=== PATIENT | male | born 1970 | race Caucasian/White ===

== ENCOUNTER 2020-06-30 19:58 | Emergency (ER) | payer OTHER ==
[~2020-06-30 19:58] MED LIST: Iopamidol-370 76% 500 ML 1 ML ONE
[2020-06-30 21:17] LABS: #Basophils 0.1 thou/uL (0.0-0.2); #Eosinphils 0.2 thou/uL (0.0-0.7); #Lymphocytes 1.5 thou/uL (1.20-3.40); #Monocytes 1.1 thou/uL (0.11-0.59); #Neutrophils 9.2 thou/uL (1.40-6.50); %Basophils 0.5 % (0.0-1.0); %Eosinophils 1.3 % (0.0-10.0); %Lymphocytes 12.1 % (21.0-51.0); %Monocytes 9.3 % (0.0-10.0); %Neutrophils 76.8 % (42.0-75.0); Hemoglobin 16.1 g/dL (14.0-18.0); Mean Corpuscular HGB CONC 35.1 g/dL (32.0-36.0); Mean Corpuscular Hemoglobin 32.7 pg (27.0-31.0); Mean Platelet Volume 7.4 fL (7.4-10.4); Platelet Count 247 thou/uL (130-400); RBC Distribution Width 11.8 % (11.5-14.5); Red Blood Cell (RBC) Count 4.94 mill/uL (4.70-6.10)
[2020-06-30 21:38] LABS: ALT (SGPT) 35 U/L (8-55); AST (SGOT) 24 U/L (5-34); Albumin 4.1 g/dL (3.5-5.0); Alkaline Phosphatase 70 U/L (40-110); Anion Gap 16 mmol/L (10-20); BUN (Urea Nitrogen) 18 mg/dL (8.9-20.6); Bilirubin, Total 0.5 mg/dL (0.2-1.2); Calc. Creatinine Clearance 0 mL/min (70-130); Calcium 9.4 mg/dL (7.8-10.44); Carbon Dioxide 22 mmol/L (22-29); Chloride 104 mmol/L (98-107); Estimated GFR-MDRD Greater than 90; Globulin 2.7 g/dL (2.4-3.5); Glucose 93 mg/dL (70-105); Potassium 4.4 mmol/L (3.5-5.1); Protein, Total 6.8 g/dL (6.0-8.3); Sodium 138 mmol/L (136-145)
--- NOTE | 2020-06-30 22:23 | CT ---
EXAM: CT Pelvis W Con PROVIDED CLINICAL HISTORY: Redness and swelling left buttock the level of mid thigh. Complains of left buttock abscess. COMPARISON: None FINDINGS: There is an irregular fluid collection seen within the left gluteal region and the region of the left gluteus payal muscle with enhancing rim. This collection is difficult to accurately measure given the course of the collection which courses from the level of the inferior aspect left sacroilia c joint laterally and inferiorly to the proximal aspect of the left lower extremity. The collection measures approximately 10.1 cm transverse x3.4 cm cranial caudal x4.1 cm transverse. There is overlyi ng subcutaneous soft tissue swelling and slight skin thickening. Findings are worrisome for an abscess collection within the left gluteal musculature with adjacent cellulitis. This collection does come in close proximity to the left sacrum adjacent to the sacroiliac joint, but no osseous destruction or sclerosis is seen in this region. Urinary bladder has a normal CT appearance. No fluid collection, free fluid, or lymphadenopathy is seen in the pelvis. IMPRESSION: Findings suggestive of abscess collection within the left gluteal musculature with overlying inflamma tory stranding likely related to associated cellulitis.
[2020-06-30] MEDS ORDERED: Morphine 4 MG/ML VIAL ONE (22:28)
[2020-06-30] MEDS ORDERED: Ondansetron PF 4 MG/2 ML Vial ONE (22:28)
[2020-06-30] MEDS ORDERED: Cefepime 2 GM VIAL ONE (22:40)
[2020-06-30] MEDS ORDERED: Vancomycin 1.5 GRAM/300 ML BAG 1.5 GM in Premix Bag 1 BAG IVPB SCH (22:45)
[2020-07-01] MEDS ORDERED: Morphine 4 MG/ML VIAL ONE (00:32)
== END 2020-07-01 00:48 | disposition short-term general hospital (02) ==
LOC: ERS 19:58
DX: L02.31 Cutaneous abscess of buttock (principal); L03.317 Cellulitis of buttock; J44.9 Chronic obstructive pulmonary disease, unspecified; B19.20 Unspecified viral hepatitis C without hepatic coma; Z79.899 Other long term (current) drug therapy; Z79.82 Long term (current) use of aspirin
CPT/HCPCS: 36415; 72193; 80053; 83605; 85025; 87040; 96365; 96367; 96375; 96376; J0692; J2270; J2405; J3370; Q9967